=== PATIENT | female | born 1940 | race Caucasian/White ===

== ENCOUNTER → 2018-05-28 10:50 | Outpatient (BNVA) | payer MEDICARE, BC, SELFPAY | PROVIDERS: PCP Internal Medicine Geriatric Medicine; Referring Provider Internal Medicine Geriatric Medicine; Visit Provider Orthopaedic Surgery | DX: M25.511 Pain in right shoulder (principal); M75.81 Other shoulder lesions, right shoulder | CPT/HCPCS: 20610; 99213; 99214; J1040 ==

== ENCOUNTER → 2018-08-21 10:51 | Outpatient (BNVA) | payer MEDICARE, BC, SELFPAY | PROVIDERS: PCP Internal Medicine Geriatric Medicine; Referring Provider Internal Medicine Geriatric Medicine; Visit Provider Orthopaedic Surgery | DX: M17.12 Unilateral primary osteoarthritis, left knee (principal); Z96.651 Presence of right artificial knee joint | CPT/HCPCS: 99213 ==

== ENCOUNTER 2018-10-29 09:57 | Outpatient (CLI) | payer MEDICARE, BC, SELFPAY ==
[2018-10-29 12:43] LABS: Abs Immature Grans 0.03 k/cumm (0.0-0.09); Absolute Basophil Count 0.06 k/cumm (0.0-0.2); Absolute Eosinophil Count 0.24 k/cumm (0.0-0.7); Absolute Lymphocyte Count 3.13 k/cumm (1.2-3.4); Absolute Neutrophil Count 6.66 k/cumm (1.2-6.7); Basophils % 0.5; Eosinophils % 2.2; HGB 13.3 g/dL (12.0-15.5); Immature Grans % 0.3; Lymphocytes % 28.4; Mean Corp. HGB Concentration 34.1 g/dL (32.0-36.0); Mean Corpuscular Hemoglobin 32.2 pg (27.0-33.0); Mean Corpuscular Volume 94.4 fL (80-95); Mean Platelet Volume 9.2 fL (8.0-11.0); Monocytes % 8.2; Neutrophils % 60.4; Platelet Count 327 x1000/uL (130-400); RBC 4.13 m/cumm (4.00-5.20); RBC Distribution Width 12.7 % (11.7-14.6); White Blood Cell Count 11.02 k/cumm (4.4-10.8)
== END 2018-10-29 10:17 ==
PROVIDERS: PCP Internal Medicine; Visit Provider Orthopaedic Surgery
DX: M17.11 Unilateral primary osteoarthritis, right knee (principal); Z01.812 Encounter for preprocedural laboratory examination
CPT/HCPCS: 36415; 85025

== ENCOUNTER 2018-11-03 05:56 | Inpatient (IN) | payer MEDICARE, BC, SELFPAY ==
[2018-10-29 10:06] VITALS: BP 139/72; PULSE 88; RESP 17; TEMP 36.8; O2SAT 97
--- NOTE | 2018-10-29 14:01 | PDOC.CMPRO ---
- If Service Date Differs Date of service: 10/29/18 Time of Service: 14:01 Care Management Progress Note CM visited Eden at her pre op appointment to assess her post op needs. Eden is scheduled for a left total knee replacement by Dr. Drake. Eden lives with her , Francisco, in [place], [place]. 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 She was in a wheel chair during the interview, and states that she has her own wheelchair at home, as well as a walker, which she uses most often. She reports that she lives in a house with everything on the same floor, and that she has a walk in bath. She is not independent at baseline- her is her caregiver. CM asked if there are any concerns about going home. She stated that she has had other surgeries, so she is expecting a recovery time of 3-4 months. She requested to have home health for PT, OT after the surgery, but she also stated that she would be interested in looking into a short rehab stay. CM will provide information on rehab facilities closer to their home. CM will help coordinate and continue to follow.
--- NOTE | 2018-10-29 16:15 | NUR.NOTE ---
During pre op visit patient stated she was unable to receive blood and if she did require blood it would have [place] [facility] [place] Tiana Myers, STARR was made aware of pt's statement during pre op visit. Dr. Drake was made aware of WBC from labs drawn today, 10/29/18, and of the pt's statement about unable to receive blood. No type and screen ordered. [facility] 10/29/18 1643Nursing Note:
[2018-11-03] VITALS (17 sets, daily range): BP systolic 129–190; BP diastolic 58–83; PULSE 73–106; RESP 12–22; TEMP 36.1–36.8; O2SAT 92–98
[2018-11-03] MEDS: Lactated Ringers 1,000 ML 80 ML IV ×2 (07:21→09:39)
[2018-11-03] MEDS: Bupivacaine 0.25% Pres-Free 30 ML VIAL (07:29)
[2018-11-03] MEDS: Bupivacaine LIPOSOME/PF 133 MG/10 ML VIAL IJ (07:29)
[2018-11-03] MEDS: ceFAZolin 2 GM/50 ML BAG IVPB (07:45)
[2018-11-03] MEDS: Hydrogen Peroxide 3% 480 ML BTL (08:58)
--- NOTE | 2018-11-03 11:09 | DI.RAD_ITS ---
SYMPTOM/DIAGNOSIS: CHECK TOTAL KNEE COMPONENTS IN RR LEFT KNEE: 11/03 Two views were obtained and show total knee joint replacement in position. Components appear well seated. No other significant bony abnormality seen.
[2018-11-03] MEDS: oxyCODONE-CR 10 MG TABCR PO (12:34)
[2018-11-03] MEDS: ceFAZolin 2,000 MG in Normal Saline 100 ML 200 MG IVPB ×2 (12:35→17:45)
[2018-11-03] MEDS: POTASSIUM CHLORIDE/0.9% NACL 1,000 ML 125 MEQ IV ×2 (15:04→22:49)
[2018-11-03] MEDS: Ketorolac 30 MG/ML VIAL IVP (15:35)
--- NOTE | 2018-11-03 16:37 | ROE_ITS ---
DATE OF PROCEDURE: November 03, 2018 PREOPERATIVE DIAGNOSIS: Osteoarthritis left knee with valgus deformity. POSTOPERATIVE DIAGNOSIS: Same. PROCEDURE: Left total knee replacement. COMPONENTS USED: 1. Size 2.5 posterior cruciate-substituting femoral component. 2. Size 2.5 tibial component. 3. Rotating platform, posterior cruciate-substituting, 2.5, 12.5 mm polyethylene insert. 4. 32 mm tri-pronged patella. All components were cemented. ANESTHESIA: General with femoral nerve block, Maxi Cabral CRNA SURGEON: Diaz Drake M.D. STATISTICAL REPORTING ANALYST: Raciel Aragon INDICATIONS: This is a 77-year-old white female with progressive left knee pain over the last severa l years. She has previously undergone a right total knee replacement with good result fifteen years ago. Her left knee pain had progressed to the point where it interfered with activities of daily jordyn ing with extreme limitation in her ambulation. X-rays showed a valgus deformity to her knee from the arthritis. Total knee replacement was recommended to alleviate her pain and restore some of her pre vious ambulatory abilities. The risks and complications of the procedure were explained to the patie nt and her in detail preoperatively. PROCEDURE: The patient was taken to the Operating Room on 11/03/18. She was placed supine on the oper ating table and a general anesthetic was administered. A femoral nerve block was then administered t o the left lower extremity. A proximal tourniquet was applied to the left thigh and then the left lo wer extremity was prepped from toes to tourniquet and draped free in the usual sterile fashion. Under proximal tourniquet control, an anterior midline incision was made beginning at the tibial tube rcle and extending four inches proximal to the patella. The incision was carried down to the fascia. A medial parapatellar capsular incision was then made and extended proximally and longitudinally in line with the quadriceps tendon. A limited medial subperiosteal release was performed. The patella was everted and the knee was hyperflexed. The distal femur was resected using intramedullary alignment guides and jigs. She was found to requi re a size 2.5 femoral component. The proximal tibia was then resected using extramedullary alignment guides and jigs. The keel from the tibial component was reamed and punched out in proper rotation a lignment. Trial reduction at this point showed good stability from 0 to 90 degrees of flexion to a v arus/valgus stressing with a 12.5 mm thick insert. The knee also came to full extension with this in sert. The patella was then resected using the patellar resection guide. 16 mm of patella was left for impl antation of the patellar component. Using the drill guide for the tri-pronged patella, the holes for the tri-pronged patella were drilled out in proper rotation alignment. The hole for the intramedullary guide in the femur was filled with resected bone from the distal femu r. The proximal tibia was prepared for cementing. The ACL and PCL were sacrificed. Medial and late ral meniscectomies were performed and the lateral capsule was released from the tibia and the iliotib ial band was released from the tibia as well to compensate for her valgus deformity. The proximal ti siva was prepared with pulse irrigation lavage of saline solution and drying with peroxide-soaked stri p sponges. One batch of gentamicin-impregnated methylmethacrylate was vacuum-mixed and hand-packed o nto the prepared tibia. The tibial component was inserted and packed into place and further pressuri zed using the trial components and extending the knee. Excess cement was trimmed from the margins of the tibial component with the plastic cement removal tool while the cement was still soft. When the first batch of methylmethacrylate had cured the trial components were removed. The distal femur and patella were prepared for cementing with pulse irrigation lavage of saline solution and drying with peroxide-soaked strip sponges. Another batch of gentamicin-impregnated methylmethacrylate was vacuum -mixed and hand-packed onto the prepared distal femur and patella. The femoral component was impacte d into place with the impactor and mallet and pressurized using the trial insert and extending the kn ee. The patellar component was pressurized using the patellar clamp. Excess cement was trimmed from the margins of the femoral and patellar components while the cement was still soft using the plastic cement removal tool. When the second batch of methylmethacrylate had cured, the clamp was removed. The posterior recesses were then checked and any residual bone or cement debris was removed at this point. The actual liner, size 2.5 rotating platform, 12.5 mm thick posterior cruciate-substituting w as placed onto the tibial component and reduced on the femoral condyles. Patellar tracking using the [id number]-xl-af-thumb was anatomic. The left knee was flexed over soft goods and closure was begun. The knee was copiously irrigated with Betadine and saline solution. The solution was allowed to stay in the knee for a minute before suctioning. The knee capsule was then infiltrated with 0.5% Marcaine w ith an epinephrine solution. Then the wound margins were infiltrated with 0.5% Marcaine with an epin ephrine solution. The medial parapatellar capsular incision and the incision in the quadriceps tendo n were repaired with interrupted [id number]-[id number]-[id number] sutures of #1 Vicryl suture material. The subcu was approximated with interrupted #2-0 Vicryl sutures. The skin edges were approximated with skin stapl es. Sterile dressings were applied of Xeroform gauze, sterile gauze 4x4's, ABD pads and wrapped with a Kerlix bandage. A long-leg Wlels compressive dressing was applied. A knee immobilizer splint was placed over the compressive dressing to maintain the knee in extension. The tourniquet was released at this point. The patient receive 1 gram of tranexamic acid prior to tourniquet inflation and a se cond gram of tranexamic acid following tourniquet deflation. The patient's anesthesia was reversed w ithout complication. Blood loss was minimal due to tourniquet use. The patient was discharged to cover in good condition.
--- NOTE | 2018-11-03 17:57 | PT.INIE ---
Date of service: 11/03/18 Time of Service: 03:00 PT Notes Inpatient Physical Therapy Evaluation Date: 11/03/2018 Referring Doctor: Diaz Drake MD PT Orders: PT CONSULT: Get OOB ambulating in room this afternoon. WBAT to L leg post-op L TKR.? Precautions: Fall. Standard. Patient Profile/Admitting Diagnosis: Patient is a 77 year old female s/p L TKR POD 0. She has a history of primary osteoarthritis, and widespread chronic pain. PMHX: Chronic otitis, Chronic pain, aortic stenosis,. basal cell ca,. Hx MRSA,. hyperlipidemia, hypothyroidism,. Iron deficiency anemia,. DARIEN,. PTSD. Suirgical history: Aortic valve replacement. C/S. appendectomy. cholecystectomy. fusion of cervical spine. sinus surgery Social History/Home Situation: Mrs. Muhammad reports she lives with her in a one-story home that has three steps to enter. Patient was independent with all aspects of ADLs without the need for an assistive ambulatory device not adaptive equipment. Equipment Owned/DME: FWW, 4WW, MT Subjective: Mrs. Muhammad reports 9/10 going from her hip to her knee. She informs the SPT and PT she had taken a marijuana-edible to relieve her pain. She agreed to a PT evaluation. Objective: General Observation: Patient was seen laying supine with HOB slightly elevated. She was wearing a marrero dressing and knee immobilizer brace on the L LE. Patient had a willams catheter in place as well as an IV in her R LE. She has an obvious essential tremor. Mental Status: Alert and oriented x 4 Pain: 9/10 Vital Signs: ROM: Right Lower Extremity: Hip flexion WFL. Hip abduction WFL. Ankle dorsiflexion WFL. Ankle plantarflexion WFL. Left Lower Extremity: Hip flexion WFL. Hip abduction WFL. Knee flexion NT due to complaints of pain. Knee extension NT due to complaints of pain. Ankle dorsiflexion WFL. Ankle plantarflexion WFL. Strength: Right Lower Extremity: Hip flexors 3-/5. Hip abductors 4/5. Knee extensors 4-/5. Ankle dorsiflexors 3/5. Ankle plantarflexors 3/5. Left Lower Extremity: Hip flexors 3-/5. Hip abductors 4/5. Knee extensors 3-/5. Ankle dorsiflexors 3/5. Ankle plantarflexors 3/5. Bed Mobility/Transfers: Rolling Min Supine to sit Min A Sit to supine Min A Sit to stand Mod A Stand to sit Mod A Bed to chair Mod A Chair to bed Mod A Gait: Patient ambulated 15? + 15? using a step-to gait pattern with a FWW and minimal-moderate assist of two people and with moderate to maximal verbal cues for safe gait pattern, hand placement, and walker management. She took three lateral steps to the left to center herself before getting back into bed. Balance: Static Sitting: Good Dynamic Sitting: Good Static Standing: Poor Dynamic Standing: Poor Special Tests: Mobility Limitations Standardized Measure [facility] AM-PAC 6 clicks Basic Mobility Inpatient Short Form: Raw Score: 13 CMS Score: 65% Informed Consent/Education: Patient instructed in purpose of PT consult and plan of care. Assessment: Patient is a 77 year old female s/p L TKA POD 0. She has a history of hypertension, primary osteoarthritis, and chronic pain. She has the support of her , and seems motivated to return to prior level of function so her prognosis is good. Patient presents with clinical signs and symptoms consistent with current/admitting diagnoses that have resulted to mobility limitations, gait instability, generalized weakness, and impairment of motor control as demonstrated by the following impairment level findings: 1. Decreased strength to B LE major muscle groups 2. Impaired sitting/standing balance 3. Impaired activity tolerance 4. Limitation of joint range of motion in knee flexion and extension Impairments are contributing to the following functional limitations: 1. Dependent bed mobility skills 2. Increased dependence with transfers 3. Inability to safely ambulate without assistive device and physical assistance 4. Increase completion time for mobility ADL performance 5. Increased fall risk 6. Inability to negotiate steps alone safely Patient is assessed as a 14183 moderate complexity based on the following: History: Hypertension, chronic pain, osteoarthritis, essential tremor Examination: Demonstrable impairment in strength, balance, and range of motion with underlying impairments and functional limitations as documented above Presentation: Evolving Decision Makin moderate complexity Goals: Goals X1 week 1. Supine-Sit independent 2. Sit-Supine independent 3. Sit-Stand independent 4. Stand-Sit independent 5. Bed-Chair independent 6. Chair-Bed independent 7. Independent gait on level surface with use of least restrictive device for at least 100 feet without report of pain nor dyspnea 8. Independent stair negotiation while holding onto bilateral rails for at least 5 steps without report of pain nor dyspnea 9. Independent with home exercise program 10. Good static and dynamic standing balance/tolerance Plan of Care/Treatment Plan: 1-2x/day, 7 days/week x 1 week. Plan of care has been reviewed with the SALMON TROLL FISHER providing the service under Physical Therapy direction. Initiate Physical Therapy intervention for strengthening, bed mobility, transfers, gait, stairs, balance training, use of assistive device. DISCHARGE RECOMMENDATIONS: Patient has requested being discharged to a group home facility as she fears her will not have the capacity to care for her. PT and SPT agree that SNF would be the best fit for her recovery. TREATMENT CODE/TIME: 10038 x 48 minutes beginning at 15:00 PM. Thank you very much for this referral. Leonel Acuna [facility] With the supervision of: Ruthie Carroll PT, DPT, CLT [facility]
[2018-11-03] MEDS: oxyCODONE 5 mg/Acetaminophen 325 mg TAB 1 TAB PO (20:04)
[2018-11-03] MEDS: Primidone 50 MG TAB PO (20:05)
[2018-11-03] MEDS: Acetaminophen 325 MG TAB 650 MG PO (21:31)
[2018-11-03] MEDS: Patch Removal 1 EACH TP (21:33)
[2018-11-03] MEDS: DULoxetine 30 MG CAP 60 MG PO (21:50)
[2018-11-03] MEDS: Montelukast 10 MG TAB PO (21:51)
[2018-11-04] VITALS (7 sets, daily range): BP systolic 135–164; BP diastolic 53–76; PULSE 88–121; RESP 16–22; TEMP 36.3–37.4; O2SAT 92–96
[2018-11-04] MEDS: oxyCODONE-CR 10 MG TABCR PO ×3 (00:10→23:27)
[2018-11-04] MEDS: ceFAZolin 2,000 MG in Normal Saline 100 ML 200 MG IVPB ×2 (00:10→06:02)
[2018-11-04] MEDS: Normal Saline Flush 10 ML SYR IVP ×5 (05:29→22:49)
[2018-11-04] MEDS: oxyCODONE 5 mg/Acetaminophen 325 mg TAB 1 TAB PO ×4 (06:01→22:40)
[2018-11-04] MEDS: Ondansetron 4 MG TAB 8 MG PO (06:09)
[2018-11-04] MEDS: POTASSIUM CHLORIDE/0.9% NACL 1,000 ML 125 MEQ IV (06:57)
[2018-11-04 07:33] LABS: HCT 27.1 % (36.0-46.0); HGB 8.9 g/dL (12.0-15.5); Mean Corp. HGB Concentration 32.8 g/dL (32.0-36.0); Mean Corpuscular Hemoglobin 31.6 pg (27.0-33.0); Mean Corpuscular Volume 96.1 fL (80-95); Mean Platelet Volume 9.9 fL (8.0-11.0); Platelet Count 239 x1000/uL (130-400); RBC 2.82 m/cumm (4.00-5.20); RBC Distribution Width 12.5 % (11.7-14.6); White Blood Cell Count 12.92 k/cumm (4.4-10.8)
[2018-11-04] MEDS: Baclofen 10 MG TAB PO (07:48)
[2018-11-04] MEDS: DULoxetine 30 MG CAP PO (08:22)
[2018-11-04] MEDS: Ascorbic Acid 500 MG TAB 1000 MG PO (08:22)
[2018-11-04] MEDS: hydroCHLOROthiazide 25 MG TAB PO (08:22)
[2018-11-04] MEDS: Cholecalciferol (Vitamin D3) 400 UNIT TAB PO (08:22)
[2018-11-04] MEDS: Primidone 50 MG TAB PO ×2 (08:22→19:24)
[2018-11-04] MEDS: amLODIPine 10 MG TAB PO (08:23)
[2018-11-04] MEDS: Multivitamin w/Minerals TAB 1 TAB PO (08:23)
[2018-11-04] MEDS: Levothyroxine 25 MCG TAB PO (08:23)
[2018-11-04] MEDS: diphenhydrAMINE 25 MG CAP PO (08:23)
[2018-11-04] MEDS: Pantoprazole 40 MG TABCR PO (08:24)
[2018-11-04] MEDS: Vitamin E 400 UNITS CAP PO (08:24)
[2018-11-04] MEDS: Ketorolac 30 MG/ML VIAL IVP ×2 (09:06→15:48)
[2018-11-04] MEDS: Enoxaparin 40 MG/0.4 ML SYR SC (09:07)
--- NOTE | 2018-11-04 09:18 | PDOC.CMIN ---
- If Service Date Differs Date of service: 11/04/18 Time of Service: 09:18 Care Management Initial Assess REASON FOR HOSPITALIZATION:: Osteoarthritis of left knee PAST MEDICAL HISTORY/PAST SURGICAL HISTORY:: Chronic otitis, Chronic pain, aortic stenosis,. basal cell ca,. Hx MRSA,. hyperlipidemia, hypothyroidism,. Iron deficiency anemia,. DARIEN,. PTSD. Suirgical history: Aortic valve replacement. C/S. appendectomy. cholecystectomy. fusion of cervical spine. sinus surgery PREVIOUS FUNCTIONAL STATUS/SOCIAL/FAMILY SUPPORTS:: Johanna lives with her in [place], [place] in a single family home which is all on one level. She uses a wheelchair, walker and cane at different times for ambulatory assistance. Eden has a son who will stay with her for a few days when she returns home to provide additional support. Eden states her cooks and is very helpful with her care. CURRENT FUNCTIONAL STATUS:: Johanna was sitting up slightly in bed with an ice pack on her head when CM came to meet with her. She stated she had a terrible migraine headache which she gets several times per week.She stated that the surgery went well but because of the headache she was unable to work with PT today. She anticipates needing HH services at home. She shared that her balance is poor and that she is not sure how well she will be able to get around. She is open to the ides of a short rehab stay but would prefer to go home if possible. ADVANCE DIRECTIVES:: None on file Has patient been provided with information about the portal?: No Did the patient sign up for the portal?: No CODE STATUS:: Full Code INSURANCE COVERAGE / FINANCIAL ISSUES:: Medicare. BS CURRENT HOME/COMMUNITY SERVICES/EQUIPMENT:: wheelchair, walker, cane PRIMARY CARE PHYSICIAN:: Megan Gonzalez POTENTIAL DISCHARGE NEEDS:: Follow up with Surgeon and discharge plan of care PATIENT/FAMILY EDUCATION NEEDS:: Discharge plan, limitations, follow up plan, Ask Me Three ANTICIPATED BARRIERS TO DISCHARGE:: chronic pain TRANSPORTATION:: via private vehicle with when ready PLAN:: Eden is recovering from knee surgery and will be working with PT. She may need a short stay in rehab prior to going home. In either case she will likely need new HH services of RN, OT and PT at home. CM will continue to provide support to patient, family and discharge planning needs.
--- NOTE | 2018-11-04 09:51 | PHARADMIT ---
Addendum entered by Andrés Prince III 11/07/18 10:44: Pharmacy Note Subjective MD notes that patient is slow to progress and will need a SNF rehab stay upon discharge. Objective VS-OK Pain: 10/04 No Labs, Assessment Oxycodone reordered for 4 more days. Cefazolin has completed. Plan Care managers working on placement, continue PT and curent care. Original Note: Admission Pharmacy Clinical Review LEFT KNEE (Dr. Drake) 11/03/18 Code Status Full Code Current Weight 87.9 kg Renally Cleared and Narrow Therapeutic Index Meds No SCr available, no prior visits QTc Value / Action Taken BP Control, Fever BP 136/53 Temp Afebrile Pain 10/04 Electrolytes reviewed n/a DVT Prophylaxis Lovenox 40mg Opiate Usage / Scheduled Bowel Regimen Ordered yes/yes Plt/SCr for Heparin / Enoxaparin Plt 239 SCr n/a INR for Warfarin H/H stable, WBC/Bands H/H 8.9/27.1 WBC 12.92 Antibiotic appropriateness Cultures and Sensitivities Surgical ABX d/c within 24 hr DM control / Insulin Dosing Heart Failure (Check EF%) (ARLETTE's, B-Block, Diuretics) Amlodipine, HCTZ, IV to PO Switch Home Meds Reviewed Non-formulary meds needing clarification: Dexameth eye drops and Liothyronine, waiting for family to come in to ask, RN aware,retail pharmacy listed in [facility]ick has not filled these Rx's ?Diphenhydramine administered in the morning??? will ask, also taking schedule Oxycontin and Percocet prn Home Meds Not Ordered Comments Pain: Toradol IV scheduled, Lidocaine patch
[2018-11-04] MEDS: diazePAM 2 MG TAB PO (11:17)
--- NOTE | 2018-11-04 11:36 | PT.INTREAT ---
Date of service: 11/04/18 Time of Service: 11:36 PT Notes Inpatient Physical Therapy Treatment Note [facility] Date: 11/04/18 PRECAUTIONS: Fall SUBJECTIVE: Johanna reporting that she has a significant migraine this morning. She initially refuses to participate in PT. For the second attempt, patient reports no relief from her migraine and continues to refuse to participate in PT. OBJECTIVE: I educate patient regarding the importance of participating in early rehab for best possible outcomes following her TKA. We discuss the potential issues that may arise following lack of participation in PT. Nursing is aware. BED MOBILITY/TRANSFERS/GAIT: Refused THEREX: Patient completed ankle pumps and quad sets x10 each. Patient then refused to perform further exercises until she feels relief from her migraine. ASSESSMENT: Patient would benefit from participating in early rehabilitation following her TKA for improved mobility. PLAN: Continue with PT's POC TREATMENT CODE/TIME: 10 minutes; 13005
[2018-11-04] MEDS: Acetaminophen 325 MG TAB 650 MG PO ×2 (11:42→19:24)
[2018-11-04] MEDS: fentaNYL 100 MCG/2 ML VIAL 50 MCG IVP ×4 (13:09→22:45)
[2018-11-04] MEDS: Cyproheptadine 4 MG TAB PO (14:52)
--- NOTE | 2018-11-04 15:04 | W.PM.PROGNOT ---
Date of Service Date of service: 11/04/18 Time of Service: 15:04 Assessment and Plan (1) Status post total knee replacement: Current visit: Yes Status: Acute Assessment: Stable postop day #1 left total knee replacement. I think she is demonstrating some mild confusion today. That this is demonstrated by the fact that she has a multitude of complaints that she contradicts is a speak with her longer. She stopped talking about her migraines after I point out to her that her PCP did not mention migraines in her H&P. She does not list any medications that she would be taking for migraine. I also pointed out to her that the reason she is having less pain with her knee replacement this hospitalization is that she is having multimodal pain control with scheduled medication dosages rather than as needed doses so the medicines that she denies are helping are actually helping. Plan: DC her [place]. Recheck hemoglobin tomorrow. I am not going to give her anything different or any new medications for her headache. She already has fentanyl ordered for severe pain. We will continue to mobilize her per protocol PT. Will take off her [place] tomorrow and get her knee flexing. Subjective Interval history since last seen: She is complaining that she is having a migraine headache. I reviewed her preop H&P by her PCP. There is no mention in this note about migraines. She is certainly not taking any medicine for migraines. She says that in the past the only thing that made him go away was a shot of Demerol. As for her knee, she tells me that she is having much less pain with his knee replacement than she did with her right knee 15 years ago. She is concerned about her bowel status at this time. She is worried about getting constipated even though in the past she has had a problem with fecal incontinence. She is concerned about getting her [place] out even though she walked to the doorway and back. Exam Narrative Exam Narrative: She has good sensation and circulation to her left toes. She has good active ankle dorsiflexion and plantarflexion. She was able to walk with her walker from the bed to the doorway and back. I&o's are good. Hemoglobin is 8.9 g this morning. Objective Objective Clinical Data: Abnormal lab results 11/04/18 Range/Units 06:06 WBC 12.92 H (4.4-10.8) k/cumm RBC 2.82 L (4.00-5.20) m/cumm Hgb 8.9 L (12.0-15.5) g/dL Hct 27.1 L (36.0-46.0) % MCV 96.1 H (80-95) fL Vital Signs Temperature 36.8 C 11/04/18 13:03 Temperature Source Tympanic 11/04/18 13:03 Pulse 99 H 11/04/18 13:03 Pulse Rhythm Regular 11/04/18 09:22 Respiratory Rate 11/04/18 13:03 Respiratory Effort 11/04/18 09:22 Respiratory Depth Normal 11/04/18 09:22 Respiratory Pattern Normal 11/04/18 09:22 Blood Pressure 154/67 H 11/04/18 13:03 Pulse Oximetry 93 L 11/04/18 13:03 Respiratory End-tidal CO2 33 11/03/18 11:50 Oxygen Delivery Method Room Air 11/04/18 13:03 Oxygen Flow Rate 0 11/04/18 13:03 Pain Level 9 11/04/18 13:09 Intake & Output 11/03/18 11/04/18 11/04/18 23:59 11:59 23:59 Intake Total 1551.417 / 2971.417 1802.5 / 1802.5 Output Total 100 / 200 1050 / 1450 400 / 1450 Balance 1451.417 / 2771.417 752.5 / 352.5 -400 / 352.5 Weight 87.9 kg Intake: IV 1551.417 / 2921.417 1322.5 / 1322.5 Oral 480 / 480 Output: Urine 100 / 200 1050 / 1450 400 / 1450 Other: Urine Color Straw Yellow Yellow Light Dalia Urine Appearance Clear Clear Clear Laboratory Results WBC 12.92 k/cumm (4.4-10.8) H 11/04/18 06:06 RBC 2.82 m/cumm (4.00-5.20) L 11/04/18 06:06 Hgb 8.9 g/dL (12.0-15.5) L 11/04/18 06:06 Hct 27.1 % (36.0-46.0) L 11/04/18 06:06 MCV 96.1 fL (80-95) H 11/04/18 06:06 MCH 31.6 pg (27.0-33.0) 11/04/18 06:06 MCHC 32.8 g/dL (32.0-36.0) 11/04/18 06:06 RDW 12.5 % (11.7-14.6) 11/04/18 06:06 Plt Count 239 x1000/uL (130-400) 11/04/18 06:06 MPV 9.9 fL (8.0-11.0) 11/04/18 06:06
--- NOTE | 2018-11-04 15:20 | CHAPLAIN ---
Johanna was lying in bed with a washcloth and icepack over her eyes and forehead. She told me she was dealing with a migraine. Johanna is a member of the [facility] [facility] [employer] and her hot car charger knows she is here. While we were having a conversation, she received a phone call and I left.
--- NOTE | 2018-11-04 15:39 | PT.INTREAT ---
Date of service: 11/04/18 Time of Service: 15:39 PT Notes Inpatient Physical Therapy Treatment Note [facility] Date: 11/04/2018 PRECAUTIONS: Fall, WBAT L SUBJECTIVE: Johanna states that she is feeling a little better and is agreeable to participating in PT following some encouragement. OBJECTIVE: PAIN: No complaints of knee pain BED MOBILITY/TRANSFERS Rolling L/R: I Supine-sit: SBA Sit-supine: SBA Sit-stand: CGA from elevated bed surface, mod a from chair surface Stand-sit: CGA GAIT Assistive Device: FWW Weight bearing: WBAT L Assist: CGA?Min A Distance: 10' +5' Deviation: Seated rest x1, shakiness, verbal and tactile cueing required for FWW mechanics THEREX: Patient completed a lower extremity strengthening and stabilization program, with knee immobilizer in place, in a supine position, as per flow sheet. ASSESSMENT: Patient tolerated session without complaints of left knee pain. She was able to tolerate gait training this afternoon, requiring seated rest x1, demonstrating shakiness and requiring verbal and tactile cueing for FWW mechanics for safety. Patient would benefit from continued gait and transfer training as well as lower extremity strengthening for improved mobility and improved activity tolerance. PLAN: Continue with PTs POC TREATMENT CODE/TIME: 30 minutes; [id number], [id number]
[2018-11-04] MEDS: Montelukast 10 MG TAB PO (22:15)
[2018-11-04] MEDS: DULoxetine 30 MG CAP 60 MG PO (22:15)
[2018-11-05] VITALS (8 sets, daily range): BP systolic 154–173; BP diastolic 51–76; PULSE 90–112; RESP 16–24; TEMP 36.3–38; O2SAT 92–96
--- NOTE | 2018-11-05 01:07 | NUR.NOTE ---
Nursing Note: Around 2229, this nurse went in the patients room to give her the scheduled meds due including ketoralac. Patient became very upset and started yelling stating I am not taking that medication! It does not work! I only want fetanyl! This nurse spoke with CCRN and advised the patient to try the ketoralac first, then if there was not any relief she would get the fetanyl. Patient was frequently yelling out becoming belligerent with the nurses and INSURANCE SALES PRODUCER's. Patient being uncooperative, instead of ringing her call light, patient would begin yelling out and trying to get out of bed without assistance, then would scream that she was in pain. When patient would attempt to get up with assistance she would try to sit without being at the bed or bedside commode and ultimately it was decided to use a stedy lift for the night for patient safety when patient is out of bed. Patient was also stating it is ridiculous that her catheter was taken out because she is not strong enough to go to the commode. This nurse advised the patient that getting out of bed to go to the bathroom was good and would help build up strength when she does it.
[2018-11-05] MEDS: fentaNYL 100 MCG/2 ML VIAL 50 MCG IVP ×2 (01:41→05:08)
[2018-11-05] MEDS: Normal Saline Flush 10 ML SYR IVP ×3 (01:42→08:32)
[2018-11-05] MEDS: oxyCODONE 5 mg/Acetaminophen 325 mg TAB 1 TAB PO ×2 (02:23→07:35)
[2018-11-05 07:30] LABS: HCT 26.7 % (36.0-46.0); HGB 8.8 g/dL (12.0-15.5); Mean Corpuscular Volume 97.1 fL (80-95); Mean Platelet Volume 9.8 fL (8.0-11.0); Platelet Count 249 x1000/uL (130-400); RBC 2.75 m/cumm (4.00-5.20); RBC Distribution Width 12.8 % (11.7-14.6); White Blood Cell Count 12.51 k/cumm (4.4-10.8)
[2018-11-05] MEDS: amLODIPine 10 MG TAB PO (07:35)
[2018-11-05] MEDS: Primidone 50 MG TAB PO ×2 (07:36→20:08)
[2018-11-05] MEDS: Cholecalciferol (Vitamin D3) 400 UNIT TAB PO (07:36)
[2018-11-05] MEDS: Vitamin E 400 UNITS CAP PO (07:36)
[2018-11-05] MEDS: DULoxetine 30 MG CAP PO (07:36)
[2018-11-05] MEDS: Acetaminophen 325 MG TAB 650 MG PO ×2 (07:36→22:46)
[2018-11-05] MEDS: Ascorbic Acid 500 MG TAB 1000 MG PO (07:37)
[2018-11-05] MEDS: Levothyroxine 25 MCG TAB PO (07:37)
[2018-11-05] MEDS: hydroCHLOROthiazide 25 MG TAB PO (07:37)
[2018-11-05] MEDS: Pantoprazole 40 MG TABCR PO (07:37)
[2018-11-05] MEDS: Magnesium Oxide 400 MG TAB PO (07:37)
[2018-11-05] MEDS: diphenhydrAMINE 25 MG CAP PO (07:37)
[2018-11-05] MEDS: Multivitamin w/Minerals TAB 1 TAB PO (07:37)
--- NOTE | 2018-11-05 09:18 | PDOC.CMPRO ---
- If Service Date Differs Date of service: 11/05/18 Time of Service: 09:18 Care Management Progress Note S/O:Eden was sitting up in bed surrounded by family when CM came to see her. She states she is not feeling very good as she is having lots of pain. Eden and her family are requesting that CM send referrals to area SNFs for rehab. CM sent referrals to [facility] in [place], [facility], also in [place] and [facility]. A: Eden is a 77 year old woman admitted to [facility] on 11/03/18 for a total knee replacement P:Eden will work with PT to increase ambulation and mobility. She will likely go to [facility] upon discharge. Since Eden lives in [place], she is requesting placement closer to home. CM will continue to support patient, family and discharge planning process.
[2018-11-05] MEDS: Enoxaparin 40 MG/0.4 ML SYR SC (10:23)
[2018-11-05] MEDS: oxyCODONE 5 mg/Acetaminophen 325 mg TAB PO ×2 (10:57→20:30)
[2018-11-05] MEDS: LORazepam 0.5 MG TAB PO ×2 (12:20→20:08)
[2018-11-05] MEDS: oxyCODONE-CR 10 MG TABCR PO (12:21)
--- NOTE | 2018-11-05 13:08 | PT.INTREAT ---
Date of service: 11/05/18 Time of Service: 10:17 PT Notes Inpatient Physical Therapy Treatment Note [facility] Date: 11/05/2018 PRECAUTIONS: Fall. Standard. WBAT on L LE. SUBJECTIVE: Patient is adamantly refusing any out-of-bed activities for this session. She states that she has 9-10/10 pain on her knee at rest that can get aggravated with any movement. She is agreeable to removal of her Wells dressing from her right knee. OBJECTIVE: PAIN: Patient complained of constant significant left knee pain BED MOBILITY/TRANSFERS Supine-sit: minimal assist to L LE Sit-supine: minimal assist to L LE Sit-stand: minimal ssist of PT and student PT Stand-sit: minimal assist Bed-Chair:minimal assist Chair-bed:minimal assist GAIT Assistive Device: FWW Weight bearing: WBAT L Assist: minimal assit Distance: 3 sidesteps to bedside commode, 1 back step with R LE leading; 3 sidesteps to bedside commode, 1 back step with L LE leading Deviation: Highly anxious, increased shakiness with movement more promounced in B UE ASSESSMENT: Treatment for today consisted of removal of Wells dressing per orthopod instruction, review of patient goals, and reinforcement of the benefits of continuing to actively participate during physical therapy sessions. Patient continues to present with high anxiety about doing any movement as she states any movement results to significant pain. Patient continues to require extensive motivation and encouragement to participate in therapy sessions. PLAN: Continue with PT POC. Patient will benefit from home health PT services in order to progress mobility level using least restrictive assistive ambulatory device, assess home safety, identify additional equipment needs, and establish a functional maintenance program that will increase ability of patient to remain at home. TREATMENT CODE/TIME:
--- NOTE | 2018-11-05 15:02 | PT.INTREAT ---
Date of service: 11/05/18 Time of Service: 15:02 PT Notes Inpatient Physical Therapy Treatment Note [facility] Date: 11/05/2018 PRECAUTIONS: Fall SUBJECTIVE: Johanna is hesitant to participate in PT, stating that she does not want to get out of bed because she feels like she is going to faint. Johanna continues to complain of constant left knee pain. Following significant encouragement, patient is agreeable to participating in PT. OBJECTIVE: PAIN: Patient complained of constant significant left knee pain BED MOBILITY/TRANSFERS Supine-sit: Min A Sit-supine: SBA Sit-stand: Mod A Stand-sit: Min A Bed-Chair: Mod A Chair-bed: Mod A GAIT Assistive Device: FWW Weight bearing: WBAT L Assist: Mod A Distance: 6' x2 Deviation: Seated rest, shakiness, verbal and tactile cueing for FWW mechanics for safety THEREX: Patient completed a lower extremity strengthening and stabilization program, in a supine position, as per flow sheet. Patient requires assist for SLR and heel slide exercises at this time. Cryocuff to left knee. TOILETING: Patient toileted, using commode, with Max A ASSESSMENT: Patient tolerated session with complaints of constant significant left knee pain throughout session. Patient would benefit from continued participation in transfer and gait training, as well as strengthening for improved mobility and improved activity tolerance. PLAN: Continue with PTs POC TREATMENT CODE/TIME: 30 minutes; [id number], [id number]
--- NOTE | 2018-11-05 15:19 | NUR.NOTE ---
Nursing Note: Patient reports 10/10 pain consistently throughout the day as well as after pain medication administration. Patient appears drowsy and arouses easily. Patient expressed gratitude this am when she appeared to believe she was given IV fentanyl. Patient did not receive this medication, but reported she felt better when she thought to have had it.
--- NOTE | 2018-11-05 16:21 | W.PM.PROGNOT ---
Date of Service Date of service: 11/05/18 Time of Service: 16:21 Assessment and Plan (1) Status post total knee replacement: Current visit: Yes Status: Acute Assessment: Slow progress s/p L tkr due to low pain tolerance. Plan: Try fentanyl TD patch. Talked to discharge planning about long term facility transfer by Saturday for additional rehab before she can safely go home. Continue present Rx. Subjective Patient reports: still having pain and tolerating a regular diet Interval history since last seen: Feels like she needs stronger pain meds now that IV is out. Exam Narrative Exam Narrative: Afebrile ,VSS. NV exam L foot normal. PT didn't record ROM. Was OOB ambulating 6'x2 Bladder scan showed 0 cc. Objective Objective Clinical Data: Abnormal lab results 11/05/18 Range/Units 06:40 WBC 12.51 H (4.4-10.8) k/cumm RBC 2.75 L (4.00-5.20) m/cumm Hgb 8.8 L (12.0-15.5) g/dL Hct 26.7 L (36.0-46.0) % MCV 97.1 H (80-95) fL Vital Signs Temperature 37.1 C 11/05/18 16:01 Temperature Source Tympanic 11/05/18 16:01 Pulse 94 H 11/05/18 16:01 Pulse Rhythm Regular 11/05/18 09:00 Respiratory Rate 18 11/05/18 16:01 Respiratory Effort Non-Labored 11/05/18 09:00 Respiratory Depth Normal 11/05/18 09:00 Respiratory Pattern Normal 11/05/18 09:00 Blood Pressure 156/76 H 11/05/18 16:01 Pulse Oximetry 92 L 11/05/18 16:01 Respiratory End-tidal CO2 33 11/03/18 11:50 Oxygen Delivery Method Room Air 11/05/18 16:01 Oxygen Flow Rate 0 11/05/18 16:01 Pain Level 0 11/05/18 16:01 Comment 11/05/18 16:01 Intake & Output 11/04/18 11/05/18 11/05/18 23:59 11:59 23:59 Intake Total 866 / 2668.5 715 / 715 Output Total 950 / 2000 300 / 300 Balance -84 / 668.5 415 / 415 Intake: IV 616 / 1938.5 Oral 250 / 730 700 / 700 Output: Urine 950 / 2000 300 / 300 Other: Urine Color Yellow Dark Dalia Urine Appearance Clear Clear Urine Odor Normal None Voiding Methods Incontinent Bedside Commode Laboratory Results WBC 12.51 k/cumm (4.4-10.8) H 11/05/18 06:40 RBC 2.75 m/cumm (4.00-5.20) L 11/05/18 06:40 Hgb 8.8 g/dL (12.0-15.5) L 11/05/18 06:40 Hct 26.7 % (36.0-46.0) L 11/05/18 06:40 MCV 97.1 fL (80-95) H 11/05/18 06:40 MCH 32.0 pg (27.0-33.0) 11/05/18 06:40 MCHC 33.0 g/dL (32.0-36.0) 11/05/18 06:40 RDW 12.8 % (11.7-14.6) 11/05/18 06:40 Plt Count 249 x1000/uL (130-400) 11/05/18 06:40 MPV 9.8 fL (8.0-11.0) 11/05/18 06:40
[2018-11-05] MEDS: fentaNYL 25 MCG PATCH TD (17:21)
[2018-11-05] MEDS: Prochlorperazine 10 MG TAB PO (18:24)
[2018-11-05] MEDS: Celecoxib 200 MG CAP PO (20:08)
[2018-11-05] MEDS: Patch Removal 1 EACH TP (20:27)
[2018-11-05] MEDS: Patient's Own Medication 1 EACH MISC PO (20:32)
[2018-11-05] MEDS: DULoxetine 30 MG CAP 60 MG PO (22:26)
[2018-11-05] MEDS: Montelukast 10 MG TAB PO (22:26)
[2018-11-06] MEDS: oxyCODONE-CR 10 MG TABCR PO ×3 (00:32→23:28)
[2018-11-06 03:22] VITALS: BP 148/67; PULSE 87; RESP 18; TEMP 36.6; O2SAT 94
[2018-11-06 07:10] VITALS: BP 117/68; PULSE 82; RESP 20; TEMP 36.2; O2SAT 95
[2018-11-06] MEDS: Patient's Own Medication 1 EACH MISC PO ×2 (08:21→19:51)
[2018-11-06] MEDS: oxyCODONE 5 mg/Acetaminophen 325 mg TAB PO (08:22)
[2018-11-06] MEDS: Multivitamin w/Minerals TAB 1 TAB PO (08:23)
[2018-11-06] MEDS: Cholecalciferol (Vitamin D3) 400 UNIT TAB PO (08:23)
[2018-11-06] MEDS: diphenhydrAMINE 25 MG CAP PO ×2 (08:23→21:50)
[2018-11-06] MEDS: Levothyroxine 25 MCG TAB PO (08:23)
[2018-11-06] MEDS: hydroCHLOROthiazide 25 MG TAB PO (08:23)
[2018-11-06] MEDS: Magnesium Oxide 400 MG TAB PO (08:23)
[2018-11-06] MEDS: Vitamin E 400 UNITS CAP PO (08:24)
[2018-11-06] MEDS: Celecoxib 200 MG CAP PO ×2 (08:24→19:51)
[2018-11-06] MEDS: DULoxetine 30 MG CAP PO (08:24)
[2018-11-06] MEDS: LORazepam 0.5 MG TAB PO ×3 (08:24→19:50)
[2018-11-06] MEDS: amLODIPine 10 MG TAB PO (08:24)
[2018-11-06] MEDS: Ascorbic Acid 500 MG TAB 1000 MG PO (08:24)
[2018-11-06] MEDS: Primidone 50 MG TAB PO ×2 (08:24→19:50)
[2018-11-06] MEDS: Pantoprazole 40 MG TABCR PO (08:25)
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
[2018-11-06] MEDS: Enoxaparin 40 MG/0.4 ML SYR SC (09:46)
[2018-11-06] MEDS: Sennosides/Docusate Sodium TAB 2 TAB PO ×2 (09:46→18:22)
[2018-11-06 11:05] VITALS: BP 116/62; PULSE 89; RESP 20; TEMP 36.5; O2SAT 94
--- NOTE | 2018-11-06 14:51 | W.PM.PROGNOT ---
Date of Service Date of service: 11/06/18 Time of Service: 14:51 Assessment and Plan Assessment and plan (1) Status post total knee replacement: Status: Acute Assessment and plan: Assessment: Slow progress following total knee replacement. She is going to need assisted before she can return home safely. Care management is working on placement. The fentanyl patch really helped with her pain management. Plan: Continue mobilize with physical therapy. shelter home placement as soon as bed becomes available. Subjective Subjective Patient reports: feels better and pain is less Interval history since last seen: Complains of sore throat. Exam Narrative Exam Narrative: Incision incision is clean and dry. She was able to walk with physical therapy today. Quad control is still poor. His throat is benign and noninjected. Objective Objective Clinical Data: Vital Signs Temperature 36.5 C 11/06/18 11:05 Temperature Source Tympanic 11/06/18 11:05 Pulse 89 11/06/18 11:05 Pulse Rhythm Regular 11/06/18 08:45 Respiratory Rate 20 11/06/18 11:05 Respiratory Effort Non-Labored 11/06/18 08:45 Respiratory Depth Normal 11/06/18 08:45 Respiratory Pattern Normal 11/06/18 08:45 Blood Pressure 116/62 11/06/18 11:05 Pulse Oximetry 94 L 11/06/18 11:05 Respiratory End-tidal CO2 33 11/03/18 11:50 Oxygen Delivery Method Room Air 11/06/18 11:05 Oxygen Flow Rate 0 11/06/18 11:05 Pain Level 8 11/06/18 12:18 Comment 11/05/18 16:01 Intake & Output 11/05/18 11/06/18 11/06/18 23:59 11:59 23:59 Intake Total 480 / 1195 250 / 370 120 / 370 Output Total 950 / 1250 Balance -470 / -55 250 / 370 120 / 370 Intake: Oral 480 / 1180 250 / 370 120 / 370 Output: Urine 950 / 1250 Other: Urine Color Yellow Urine Appearance Clear Urine Odor None Voiding Methods Bedside Commode Diaper Incontinent Laboratory Results WBC 12.51 k/cumm (4.4-10.8) H 11/05/18 06:40 RBC 2.75 m/cumm (4.00-5.20) L 11/05/18 06:40 Hgb 8.8 g/dL (12.0-15.5) L 11/05/18 06:40 Hct 26.7 % (36.0-46.0) L 11/05/18 06:40 MCV 97.1 fL (80-95) H 11/05/18 06:40 MCH 32.0 pg (27.0-33.0) 11/05/18 06:40 MCHC 33.0 g/dL (32.0-36.0) 11/05/18 06:40 RDW 12.8 % (11.7-14.6) 11/05/18 06:40 Plt Count 249 x1000/uL (130-400) 11/05/18 06:40 MPV 9.8 fL (8.0-11.0) 11/05/18 06:40
[2018-11-06] MEDS: Acetaminophen 325 MG TAB 650 MG PO ×2 (15:50→23:27)
[2018-11-06 16:05] VITALS: BP 123/54; PULSE 93; RESP 18; TEMP 36.6; O2SAT 96
--- NOTE | 2018-11-06 19:33 | PTTR_ITS ---
Date of service: 11/06/18 Time of Service: 19:33 PT Notes Inpatient Physical Therapy Treatment Note [facility] Date: 11/06/2018 PRECAUTIONS: Fall SUBJECTIVE: Johanna continues to be hesitant about participating in PT, stating that she does not want to get out of bed because she has a sore throat and is extremely exhausted. Johanna continues to complain of left knee pain. Following significant encouragement, patient is agreeable to participating in PT in both a.m. and p.m. OBJECTIVE: PAIN: Patient complained of constant significant left knee pain BED MOBILITY/TRANSFERS Supine-sit: Min A in a.m.; SBA in p.m. Sit-supine: Mod A in a.m.; CGA in p.m. Sit-stand: CGA Stand-sit: Min A Bed-Chair: Min A Chair-bed: Min A GAIT Assistive Device: FWW Weight bearing: WBAT L Assist: Min A Distance: 6' x2 in a.m.; 6' + 10' + 4' in p.m. Deviation: Seated rest, decreased shakiness, verbal and tactile cueing for FWW mechanics for safety THEREX: Patient completed a lower extremity strengthening and stabilization program, in a supine position, as per flow sheet. Patient requires assist for SLR and heel slide exercises at this time. Cryocuff to left knee. TOILETING: Patient toileted, using commode, with Max A ASSESSMENT: Patient tolerated session with complaints of left knee pain throughout session. Patient was able to tolerate a progression in gait distance with FWW support and Min A, although continues to require constant cueing for Patient would benefit from continued participation in transfer and gait tanya anthony, as well as strengthening for improved mobility and improved activity tolerance. PLAN: Continue with PTs POC TREATMENT CODE/TIME: Session 1: 35 minutes; [id number], [id number] Session 2: 35 minutes; [id number] x2, [id number]
[2018-11-06] MEDS: Montelukast 10 MG TAB PO (21:49)
[2018-11-06] MEDS: DULoxetine 30 MG CAP 60 MG PO (21:49)
[2018-11-06 23:30] VITALS: BP 174/80; PULSE 103; RESP 20; TEMP 37.4; O2SAT 96
[2018-11-07 03:20] VITALS: BP 117/55; PULSE 92; RESP 16; TEMP 36.8; O2SAT 95
[2018-11-07 07:09] VITALS: BP 148/54; PULSE 92; RESP 19; TEMP 36.7; O2SAT 97
[2018-11-07] MEDS: Patient's Own Medication 1 EACH MISC PO (07:43)
[2018-11-07] MEDS: DULoxetine 30 MG CAP PO (07:44)
[2018-11-07] MEDS: Vitamin E 400 UNITS CAP PO (07:44)
[2018-11-07] MEDS: Magnesium Oxide 400 MG TAB PO (07:44)
[2018-11-07] MEDS: Celecoxib 200 MG CAP PO (07:44)
[2018-11-07] MEDS: Pantoprazole 40 MG TABCR PO (07:44)
[2018-11-07] MEDS: amLODIPine 10 MG TAB PO (07:44)
[2018-11-07] MEDS: Multivitamin w/Minerals TAB 1 TAB PO (07:44)
[2018-11-07] MEDS: LORazepam 0.5 MG TAB PO ×2 (07:44→11:56)
[2018-11-07] MEDS: Ascorbic Acid 500 MG TAB 1000 MG PO (07:45)
[2018-11-07] MEDS: Acetaminophen 325 MG TAB 650 MG PO (07:45)
[2018-11-07] MEDS: Levothyroxine 25 MCG TAB PO (07:45)
[2018-11-07] MEDS: Cholecalciferol (Vitamin D3) 400 UNIT TAB PO (07:45)
[2018-11-07] MEDS: hydroCHLOROthiazide 25 MG TAB PO (07:45)
[2018-11-07] MEDS: Primidone 50 MG TAB 150 MG PO (08:05)
[2018-11-07] MEDS: Lidocaine 5% Patch 1 PATCH TP (08:05)
[2018-11-07] MEDS: Sennosides/Docusate Sodium TAB 2 TAB PO (08:05)
--- NOTE | 2018-11-07 09:28 | PGE_ITS ---
Date of Service Date of service: 11/07/18 Time of Service: 09:29 Assessment and Plan Assessment and plan (1) Status post total knee replacement: Status: Acute Assessment and plan: Assessment: Her postop progress is slow. She definitely needs a shelter facility placement to her additional rehab until she can safely go home. Care management has put out feelers but so far, no responses from shelter facilities near the patient's home. Plan: Continue to mobilize with physical therapy until SNF bed is available. We will continue her on scheduled OxyContin for 4 more days to better manage her pain. Subjective Subjective Patient reports: no new complaints and still having pain Exam Narrative Exam Narrative: Continues afebrile vital signs are stable. Her ambulation continues to be limited because of complaints of generalized pain not only in her left knee. Cannot do a straight leg raise yet. She has good active dorsiflexion plantarflexion of her left ankle and good sensation and circulation to her left foot. Objective Objective Clinical Data: Vital Signs Temperature 36.7 C 11/07/18 07:09 Temperature Source Tympanic 11/07/18 07:09 Pulse 92 H 11/07/18 07:09 Pulse Rhythm Regular 11/06/18 19:49 Respiratory Rate 11/07/18 07:09 Respiratory Effort Non-Labored 11/07/18 03:57 Respiratory Depth Normal 11/07/18 03:57 Respiratory Pattern Normal 11/06/18 19:49 Blood Pressure 148/54 H 11/07/18 07:09 Pulse Oximetry 97 11/07/18 07:09 Respiratory End-tidal CO2 33 11/03/18 11:50 Oxygen Delivery Method Room Air 11/07/18 07:09 Oxygen Flow Rate 0 11/07/18 07:09 Pain Level 8 11/07/18 07:09 Comment 11/05/18 16:01 Intake & Output 11/06/18 11/06/18 11/07/18 11:59 23:59 11:59 Intake Total 250 / 370 120 / 370 Output Total 250 / 250 300 / 300 Balance 250 / 120 -130 / 120 -290 / -290 Intake: IV Oral 250 / 370 120 / 370 Output: Urine 250 / 250 300 / 300 Other: Urine Color Dark Dalia Yellow Coleman Urine Appearance Clear Urine Odor None Normal Voiding Methods Diaper Bedside Commode Bedside Commode Incontinent Laboratory Results WBC 12.51 k/cumm (4.4-10.8) H 11/05/18 06:40 RBC 2.75 m/cumm (4.00-5.20) L 11/05/18 06:40 Hgb 8.8 g/dL (12.0-15.5) L 11/05/18 06:40 Hct 26.7 % (36.0-46.0) L 11/05/18 06:40 MCV 97.1 fL (80-95) H 11/05/18 06:40 MCH 32.0 pg (27.0-33.0) 11/05/18 06:40 MCHC 33.0 g/dL (32.0-36.0) 11/05/18 06:40 RDW 12.8 % (11.7-14.6) 11/05/18 06:40 Plt Count 249 x1000/uL (130-400) 11/05/18 06:40 MPV 9.8 fL (8.0-11.0) 11/05/18 06:40
[2018-11-07] MEDS: oxyCODONE-CR 10 MG TABCR PO (10:06)
[2018-11-07] MEDS: Enoxaparin 40 MG/0.4 ML SYR SC (10:07)
[2018-11-07 11:20] VITALS: BP 134/77; PULSE 94; RESP 18; TEMP 37; O2SAT 97
--- NOTE | 2018-11-07 11:50 | PT.INNT ---
Date of service: 11/07/18 Time of Service: 11:50 PT Notes 11/07/18 Patient refused morning PT session, reporting that she has a headache and that she is having pain in her knee. Per nsg, she has been up to the commode several times this morning. Will attempt to resume PT services this afternoon.
--- NOTE | 2018-11-07 14:21 | W.PM.DS.N ---
Date of service: 11/07/18 Time of Service: 14:22 DS: Diagnosis Discharge Diagnosis (1) Status post total knee replacement: Status: Acute (2) Unilateral primary osteoarthritis, left knee: Status: Acute Discharge Plan Disposition Patient Disposition: SNF (LEVEL 1) [facility] Condition: Improving Discharge Details Reason For Visit: OA (L) KNEE Admit Date/Time: 11/03/18 05:56 Admit Provider: Diaz Drake Attending Provider: Diaz Drake Primary Care Provider: Megan Gonzalez Hospital Course Hospital Course: Patient was admitted to the medical/surgical floor following the procedure. She had significant postoperative pain which was difficult control. The pain was of the left knee but also throughout her whole body, which she reports to be somewhat chronic at baseline. She also had an issue with migraines which limit her mobilization for the first 1 to 2 days. Mobilization continued postoperatively with a more regimented pain control schedule. A knee immobilizer was also used to assist with knee extension during mobilization. The willams catheter was removed and voiding spontaneously. Vitals were stable. Physical therapy worked with the patient. She continued to have limitations in independent transfer, gait tolerance, weakness. She was not ready for discharge home but was deemed a candidate [facility]. No acute medical issues during the admission. Home Meds and New Rx's Prescriptions: New acetaminophen [Tylenol] 325 mg Tablet 650 mg PO Q6H PRN PRN (Reason: pain) Qty: 60 RF: 0 lorazepam 0.5 mg Tablet 0.5 mg PO QID PRN (Reason: anxiety) Qty: 20 RF: 0 fentanyl [Duragesic] 25 mcg/hr Patch 72 Hour 25 mcg transdermal Q72H Qty: 4 RF: 0 Phenaseptic 1.4 % Aerosol,[place]uck 0 ml mucous membrane QID PRN PRNQty: 30 RF: 0 oxycodone-acetaminophen 5-325 mg Tablet 1 tab PO Q6H PRN PRN (Reason: Pain) Qty: 20 RF: 0 pantoprazole 40 mg Tablet,Delayed Release (Dr/Ec) 40 mg PO DAILY Qty: 30 RF: 0 Therems-M 27-0.4 mg Tablet 1 tab PO DAILY Qty: 30 RF: 0 oxycodone [OxyContin] 10 mg Tablet,Oral Only,Ext.Rel.12 Hr 10 mg PO Q12H Qty: 6 RF: 0 aspirin 81 mg tablet,delayed release (DR/EC) 81 mg PO BID Qty: 60 RF: 0 Continued cetirizine-pseudoephedrine [Zyrtec-D] 5-120 mg Tablet Extended Release 12 Hr 1 tab PO DAILY RF: 0 amlodipine 10 mg Tablet 10 mg PO DAILY RF: 0 diphenhydramine HCl [Benadryl] 25 mg Capsule 25 mg PO DAILY RF: 0 celecoxib 200 mg Capsule 200 mg PO DAILY RF: 0 cyproheptadine 4 mg Tablet 4 mg PO BID PRNRF: 0 fluticasone propionate [Flonase Allergy Relief] 50 mcg/actuation [place],Suspension 1 spray INTRANASAL BID PRNRF: 0 CombiPatch 0.05-0.14 mg/24 hr Patch Semiweekly .QWEEKLY RF: 0 duloxetine 30 mg Capsule,Delayed Release(Dr/Ec) 30 mg PO DAILY RF: 0 duloxetine 60 mg Capsule,Delayed Release(Dr/Ec) 60 mg PO HS RF: 0 multivitamin Tablet 1 tab PO DAILY RF: 0 primidone 50 mg Tablet 150 mg PO BID RF: 0 riboflavin (vitamin B2) 100 mg Tablet 200 mg PO BID RF: 0 liothyronine 25 mcg Tablet 25 mcg PO DAILY RF: 0 sennosides-docusate sodium [Senokot-S] 8.6-50 mg Tablet 2 tab PO BID PRNRF: 0 ascorbic acid (vitamin C) 1,000 mg Tablet Extended Release 1,000 mg PO DAILY RF: 0 TobraDex 0.3-0.1 % Ointment 1 applic OPHTHALMIC (EYE) HS RF: 0 prochlorperazine maleate 10 mg Tablet 10 mg PO Q6H PRNRF: 0 ondansetron 8 mg Tablet,Disintegrating 8 mg PO Q8H PRNRF: 0 levothyroxine 25 mcg Tablet 25 mcg PO DAILY RF: 0 prochlorperazine [Compazine] 25 mg Suppository 25 mg DE . DIRECTED RF: 0 lidocaine 5 % Adhesive Patch,Medicated 1 patch TOPICAL DAILY RF: 0 montelukast 10 mg Tablet 10 mg PO QHS RF: 0 hydrochlorothiazide 25 mg Tablet 25 mg PO QAM RF: 0 loteprednol etabonate 0.5 % Drops,Suspension 1 drp OPHTHALMIC (EYE) BID PRNRF: 0 cholecalciferol (vitamin D3) [Vitamin D3] 400 unit Tablet 400 unit PO DAILY RF: 0 vitamin E 400 unit Capsule 400 unit PO DAILY RF: 0 magnesium oxide 400 mg magnesium Tablet 400 mg PO DAILY RF: 0 Medical Marijuana RF: 0 Changed baclofen 10 mg Tablet 10 mg PO BID PRN (Reason: Migraine Headache) Qty: 0 RF: 0 Discontinued amoxicillin 500 mg Capsule 500 mg PO PRN PRNRF: 0 azelastine 137 mcg (0.1 %) Aerosol,[place] 1 spray INTRANASAL PRN PRNRF: 0 diazepam 2 mg Tablet 2 mg PO DAILY PRN (Reason: Anxiety) RF: 0 dexamethasone 0.1 % Drops,Suspension 1 drp ophthalmic (eye) BID RF: 0 No Action epinephrine 0.3 mg/0.3 mL Syringe PRNRF: 0 Discharge Instructions Additional Instructions: Total Knee Discharge Instructions Activity: The most important activity is to walk. You should try to take short walks a few times a day. It is important that when resting you work on keeping the knee straight. Avoid putting a pillow behind the knee as this will encourage flexion. Work on range of motion exercises when in the chair and bed. Use the knee immobilizer to help with ambulation until you are able to straight leg raise. - You should wear the SASCHA hose on both legs for 2 weeks. Dressing: Keep the surgical dressing in place for at least one week. After the first week it may be removed and replace with light gauze and tape or nothing. It may get wet after 3 days but avoid soaking the dressing. If it gets wet, just lightly pat dry. - Aspirin 81mg twice a day for DVT prophylaxis - Oxycontin 10mg BID for 3 more days - Continue Fentanyl patch - Percocet for breakthrough pain Follow-up: 2 weeks Stand Alone Forms: Nursing Discharge Form Referrals: Diaz Drake MD [ [facility] STAFF PHYSICIAN] - Activity:: Activity as Tolerated Equipment/Supplies:: Walker Diet:: As Tolerated Discharge Orders Discharge Orders: Discharge Order (Routine); Ordered 11/07/18 Ordered By: Anjum Tellez DS: Summary Status at Discharge Functional status at discharge: uses cane/walker Overall status at discharge: patient is progressing back to baseline Mental Status: mental status grossly normal Speech and Movement: speech and movement normal Mood: congruent mood Affect: normal affect Exam Psych Mental Status: mental status grossly normal Speech and Movement: speech and movement normal Mood: congruent mood Affect: normal affect DS: Data Vitals/I&O Vitals and I&O: Vital Signs Temperature 36.7 C 11/07/18 07:09 Temperature Source Tympanic 11/07/18 07:09 Pulse 92 H 11/07/18 07:09 Pulse Rhythm Regular 11/07/18 07:35 Respiratory Rate 19 11/07/18 07:09 Respiratory Effort Non-Labored 11/07/18 07:35 Respiratory Depth Normal 11/07/18 07:35 Respiratory Pattern Normal 11/07/18 07:35 Blood Pressure 148/54 H 11/07/18 07:09 Pulse Oximetry 97 11/07/18 07:09 Respiratory End-tidal CO2 33 11/03/18 11:50 Oxygen Delivery Method Room Air 11/07/18 07:09 Oxygen Flow Rate 0 11/07/18 07:09 Pain Level 8 11/07/18 10:06 Comment 11/05/18 16:01 Intake & Output 11/06/18 11/07/18 11/07/18 23:59 11:59 23:59 Intake Total 120 / 370 10 / 250 240 / 250 Output Total 250 / 250 300 / 300 Balance -130 / 120 -290 / -50 240 / -50 Intake: IV 10 10 Oral 120 / 370 240 / 240 Output: Urine 250 / 250 300 / 300 Other: Urine Color Dark Dalia Yellow [place] Urine Appearance Clear Clear Urine Odor None Normal Voiding Methods Bedside Commode Bedside Commode Diaper Incontinent PFSH Social History Smoking/Tobacco Use Status: Never Drug use: Never
--- NOTE | 2018-11-07 16:03 | PDOC.CMDIS ---
- If Service Date Differs Date of service: 11/07/18 Time of Service: 16:03 LACE Index Scoring Tool - Questions: Length of Stay (in days): 4 - 6 Acuity (Admit via E.D.?): No Care Management Discharge Reason for Hospitalization: Osteoarthritis of left knee Discharge Plan: Eden will go to [facility] this afternoon She will transport via wheelchair van. Eden will follow up with Dr. richmond and her PCP when discharged. Patient/Family Education Needs: Discharge plan, limitations, follow up plan and Ask Me Three. Services Needed at Discharge: [facility]
--- NOTE | 2018-11-07 18:00 | PT.INDS ---
Date of service: 11/07/18 PT Notes Inpatient Physical Therapy Discharge Summary Dates: 11/07/2018 Dates of Service: 11/03/2018 through 11/07/2018 This is a clinical summary of care provided on the duration of dates listed above. No charge was made in the completion of this documentation. Referring Doctor: Diaz Drake MD PT Orders: PT CONSULT: Get OOB ambulating in room this afternoon. WBAT to L leg post-op L TKR.? Precautions: Fall. Standard. Patient Profile/Admitting Diagnosis: Patient is a 77 year old female s/p L TKR POD 0. She has a history of primary osteoarthritis, and widespread chronic pain. PMHX: Chronic otitis, Chronic pain, aortic stenosis,. basal cell ca,. Hx MRSA,. hyperlipidemia, hypothyroidism,. Iron deficiency anemia,. DARIEN,. PTSD. Suirgical history: Aortic valve replacement. C/S. appendectomy. cholecystectomy. fusion of cervical spine. sinus surgery Social History/Home Situation: Mrs. Muhammad reports she lives with her in a one-story home that has three steps to enter. Patient was independent with all aspects of ADLs without the need for an assistive ambulatory device not adaptive equipment. Equipment Owned/DME: FWW, 4WW, SC Subjective: NT. Please refer to ENVIRONMENTAL AUDITOR notes on 11/06/2018. Objective: General Observation: NT. Please refer to ENVIRONMENTAL AUDITOR notes on 11/06/2018. Mental Status:NT. Please refer to ENVIRONMENTAL AUDITOR notes on 11/06/2018. Pain: NT. Please refer to ENVIRONMENTAL AUDITOR notes on 11/06/2018. ROM: Right Lower Extremity: Hip flexion WFL. Hip abduction WFL. Ankle dorsiflexion WFL. Ankle plantarflexion WFL. Left Lower Extremity: Hip flexion WFL. Hip abduction WFL. Knee flexion 9-71 degrees. Knee extension -9 degrees. Strength: Right Lower Extremity: Hip flexors 3-/5. Hip abductors 4/5. Knee extensors 4-/5. Ankle dorsiflexors 3/5. Ankle plantarflexors 3/5. Left Lower Extremity: Hip flexors 3-/5. Hip abductors 4/5. Knee extensors 3-/5. Ankle dorsiflexors 3/5. Ankle plantarflexors 3/5. Bed Mobility/Transfers: Rolling SBA Supine to sit SBA Sit to supine SBA Sit to stand CGA Stand to sit CGA Bed to chair minimal assist Chair to bed minimal assist Gait: Patient ambulated 6' + 10? + 4' using a step-to gait pattern with a FWW and minimal assist and SBA of another for wheelchair follow with patient continuing to report significant pain on the L knee and hip.Moderate to maximal verbal cues were needed for extensive encouragement and safety. Balance: Static Sitting: Good Dynamic Sitting: Good Static Standing: Poor Dynamic Standing: Poor Assessment: Patient is a 77 year old female s/p L TKA POD 0. She has a history of hypertension, primary osteoarthritis, and chronic pain. She has the support of her , and seems motivated to return to prior level of function so her prognosis is good. Patient cotninues to present with clinical signs and symptoms consistent with current/admitting diagnoses that have resulted to mobility limitations, gait instability, generalized weakness, and impairment of motor control as demonstrated by the following impairment level findings: 1. Decreased strength to B LE major muscle groups 2. Impaired sitting/standing balance 3. Impaired activity tolerance 4. Limitation of joint range of motion in knee flexion and extension Impairments are contributing to the following functional limitations: 1. Dependent bed mobility skills 2. Increased dependence with transfers 3. Inability to safely ambulate without assistive device and physical assistance 4. Increase completion time for mobility ADL performance 5. Increased fall risk 6. Inability to negotiate steps alone safely Goals: Goals X1 week 1. Supine-Sit independent NOT MET 2. Sit-Supine independent NOT MET 3. Sit-Stand independent NOT MET 4. Stand-Sit independent NOT MET 5. Bed-Chair independent NOT MET 6. Chair-Bed independent NOT MET 7. Independent gait on level surface with use of least restrictive device for at least 100 feet without report of pain nor dyspnea NOT MET 8. Independent stair negotiation while holding onto bilateral rails for at least 5 steps without report of pain nor dyspnea NOT MET 9. Independent with home exercise program NOT MET 10. Good static and dynamic standing balance/tolerance NOT MET DISCHARGE RECOMMENDATIONS: Patient has requested being discharged to a [facility] facility as she fears her will not have the capacity to care for her. PT and SPT agree that SNF would be the best fit for her recovery. TREATMENT CODE/TIME: NC. Thank you very much for this referral. Ruthie Carroll PT, DPT, CLT [facility]
== END 2018-11-07 14:55 | disposition skilled nursing facility (03) | DRG 470 ==
LOC: PDS 05:58 → MS 10:47
PROVIDERS: Admitting Provider Orthopaedic Surgery; PCP Internal Medicine; Visit Provider Orthopaedic Surgery
PROC: 0SRD0J9 Replacement of Left Knee Joint with Synthetic Substitute, Cemented, Open Approach (ICD-10-PCS; CPT 27447; principal; 2018-11-03 07:30)
DX: M17.12 Unilateral primary osteoarthritis, left knee (principal); M21.062 Valgus deformity, not elsewhere classified, left knee; M25.562 Pain in left knee; Z96.652 Presence of left artificial knee joint; G89.18 Other acute postprocedural pain; R41.0 Disorientation, unspecified; R07.89 Other chest pain; G89.4 Chronic pain syndrome; G43.909 Migraine, unspecified, not intractable, without status migrainosus; I10 Essential (primary) hypertension; E03.9 Hypothyroidism, unspecified; F32.9 Major depressive disorder, single episode, unspecified; Z95.4 Presence of other heart-valve replacement; Z96.651 Presence of right artificial knee joint
CPT/HCPCS: 27447; 36415; 85027; 97110; 97162; 97530; J1650; NC; 73560; 93005; 93010; J0131; J0690; J1100; J1200; J1885; J2250; J2405; J3010; J3490; J8597; L1830

== ENCOUNTER → 2018-11-18 08:47 | Outpatient (BNVA) | payer MEDICARE, BC, SELFPAY | PROVIDERS: PCP Internal Medicine; Referring Provider Internal Medicine; Visit Provider Orthopaedic Surgery | DX: Z47.1 Aftercare following joint replacement surgery (principal); Z96.652 Presence of left artificial knee joint ==

== ENCOUNTER → 2018-12-03 10:06 | Outpatient (BNVA) | payer MEDICARE, BC, SELFPAY | PROVIDERS: PCP Internal Medicine; Referring Provider Internal Medicine; Visit Provider Orthopaedic Surgery | DX: Z47.1 Aftercare following joint replacement surgery (principal); Z96.652 Presence of left artificial knee joint ==

== ENCOUNTER → 2018-12-16 10:55 | Outpatient (BNVA) | payer MEDICARE, BC, SELFPAY | PROVIDERS: PCP Internal Medicine; Referring Provider Internal Medicine; Visit Provider Orthopaedic Surgery | DX: Z47.89 Encounter for other orthopedic aftercare (principal); M70.62 Trochanteric bursitis, left hip; Z96.652 Presence of left artificial knee joint | CPT/HCPCS: 99214 ==

== ENCOUNTER → 2019-01-06 11:03 | Outpatient (BNVA) | payer MEDICARE, BC, SELFPAY | PROVIDERS: PCP Internal Medicine; Referring Provider Internal Medicine; Visit Provider Orthopaedic Surgery | DX: M70.62 Trochanteric bursitis, left hip (principal) | CPT/HCPCS: 20610; J1040 ==

== ENCOUNTER 2019-01-27 11:22 | Outpatient (CLI) | payer MEDICARE, BC, SELFPAY ==
--- NOTE | 2019-01-27 10:55 | DI.RAD_ITS ---
EXAM: XR HIP LT COMPLETE AP PELVIS INDICATION: pain. COMPARISON: No exams were available for comparison TECHNIQUE: 2D digital imaging was performed. FINDINGS: There are again seen 3 partially threaded screws transfixing old subcapital fracture of the left femo ral neck. There has been no change in alignment of the fracture or orthopedic hardware. No new frac tures or dislocations are seen. Stable degenerative changes are seen in the right and left hips. So ft tissues are unremarkable.
== END 2019-01-27 11:42 ==
PROVIDERS: PCP Internal Medicine; Referring Provider Internal Medicine; Visit Provider Orthopaedic Surgery
DX: M25.552 Pain in left hip (principal); M70.62 Trochanteric bursitis, left hip; Z87.81 Personal history of (healed) traumatic fracture; M16.0 Bilateral primary osteoarthritis of hip; Z47.1 Aftercare following joint replacement surgery; Z96.652 Presence of left artificial knee joint
CPT/HCPCS: 73502

== ENCOUNTER 2019-09-23 13:09 | Outpatient (CLI) | payer MEDICARE, BC, SELFPAY ==
--- NOTE | 2019-09-23 11:30 | DI.RAD_ITS ---
EXAM: XR HIP LT COMPLETE AP PELVIS CLINICAL HISTORY: pain TECHNIQUE: 2D digital imaging was performed. COMPARISON: CR XR HIP LT COMPLETE AP PELVIS from 01/27/2019 FINDINGS: Screws are again noted in the left proximal femur. No abnormal bony lucencies are seen. The left hi p joint space is well maintained. There is acetabular spurring. There is moderate narrowing of the right hip joint space and moderate periarticular spurring. IMPRESSION: Stable postsurgical and degenerative changes.
== END 2019-09-23 13:29 ==
PROVIDERS: PCP Internal Medicine; Referring Provider Internal Medicine; Visit Provider Orthopaedic Surgery
DX: M70.62 Trochanteric bursitis, left hip (principal); T84.84XA Pain due to internal orthopedic prosthetic devices, implants and grafts, initial encounter; M16.12 Unilateral primary osteoarthritis, left hip
CPT/HCPCS: 99213; 73502

== ENCOUNTER 2019-10-09 08:44 | Outpatient (CLI) | payer MEDICARE, BC, SELFPAY ==
[2019-10-10 17:29] LABS: COVID-19 RT-PCR Result NEGATIVE (Negative)
== END 2019-10-09 09:04 ==
PROVIDERS: PCP Internal Medicine; Visit Provider Orthopaedic Surgery
DX: Z01.818 Encounter for other preprocedural examination (principal); T84.84XA Pain due to internal orthopedic prosthetic devices, implants and grafts, initial encounter; M25.552 Pain in left hip
CPT/HCPCS: U0003

== ENCOUNTER 2019-10-12 10:02 | Day surgery (SDC) | payer MEDICARE, BC, SELFPAY ==
[2019-10-12] VITALS (8 sets, daily range): BP systolic 135–175; BP diastolic 57–72; PULSE 65–92; RESP 12–20; TEMP 36.1–36.6; O2SAT 96–98
[2019-10-12] MEDS: Lactated Ringers 1,000 ML 80 ML IV (10:50)
--- NOTE | 2019-10-12 12:35 | DI.RAD_ITS ---
EXAM: XR HIP LT IN OR CLINICAL HISTORY: PAINFUL HARDWARE LEFT HIP. TECHNIQUE: 2D and realtime digital imaging was performed. COMPARISON: CR XR HIP LT COMPLETE AP PELVIS from 09/23/2019 FINDINGS: Fluoroscopy was provided in the OR during hardware removal. Please see procedure note for details. Fluoro time: 1.8 seconds RADIATION DOSE DELIVERED:
--- NOTE | 2019-10-12 12:57 | W.PM.DSUDISC ---
Discharge Plan Disposition Patient Disposition: HOME Condition: Good Discharge Details Reason For Visit: REMOVE HARDWARE l HIP Attending Provider: Diaz Drake Primary Care Provider: Megan Gonzalez Home Meds and New Rx's Prescriptions: New hydrocodone-acetaminophen 5-325 mg tablet 1 tab PO Q4H PRN (Reason: pain) Qty: 20 RF: 0 No Action prednisone 5 mg tablet 5 mg PO DAILY Qty: 30 RF: 0 oxybutynin chloride 5 mg tablet 5 mg PO TID RF: 0 diazepam 2 mg tablet 2 mg PO DAILY PRNRF: 0 citalopram 10 mg tablet 10 mg PO DAILY RF: 0 cyclobenzaprine 10 mg tablet 10 mg PO TID PRNRF: 0 primidone 50 mg tablet 50 mg PO BID RF: 0 cetirizine-pseudoephedrine [Zyrtec-D] 5-120 mg Tablet Extended Release 12 Hr 1 tab PO DAILY RF: 0 amlodipine 10 mg Tablet 10 mg PO DAILY RF: 0 celecoxib 200 mg Capsule 200 mg PO DAILY RF: 0 fluticasone propionate [Flonase Allergy Relief] 50 mcg/actuation [place]in,Suspension 1 spray INTRANASAL BID PRNRF: 0 CombiPatch 0.05-0.14 mg/24 hr Patch Semiweekly .QWEEKLY RF: 0 duloxetine 30 mg Capsule,Delayed Release(Dr/Ec) 30 mg PO DAILY RF: 0 duloxetine 60 mg Capsule,Delayed Release(Dr/Ec) 60 mg PO HS RF: 0 epinephrine 0.3 mg/0.3 mL Syringe 0.3 ml IM PRN PRNRF: 0 multivitamin Tablet 1 tab PO DAILY RF: 0 riboflavin (vitamin B2) 100 mg Tablet 200 mg PO BID RF: 0 sennosides-docusate sodium [Senokot-S] 8.6-50 mg Tablet 2 tab PO BID PRNRF: 0 ascorbic acid (vitamin C) 1,000 mg Tablet Extended Release 1,000 mg PO DAILY RF: 0 TobraDex 0.3-0.1 % Ointment 1 applic OPHTHALMIC (EYE) HS RF: 0 ondansetron 8 mg Tablet,Disintegrating 8 mg PO Q8H PRNRF: 0 levothyroxine 25 mcg Tablet 25 mcg PO DAILY RF: 0 lidocaine 5 % Adhesive Patch,Medicated 1 patch TOPICAL DAILY RF: 0 montelukast 10 mg Tablet 10 mg PO QHS RF: 0 hydrochlorothiazide 25 mg Tablet 25 mg PO QAM RF: 0 loteprednol etabonate 0.5 % Drops,Suspension 1 drp OPHTHALMIC (EYE) BID PRNRF: 0 cholecalciferol (vitamin D3) [Vitamin D3] 400 unit Tablet 400 unit PO DAILY RF: 0 vitamin E 400 unit Capsule 400 unit PO DAILY RF: 0 magnesium oxide 400 mg magnesium Tablet 400 mg PO DAILY RF: 0 Medical Marijuana 0.5 RF: 0 acetaminophen [Tylenol] 325 mg Tablet 650 mg PO Q6H PRN PRN (Reason: pain) Qty: 60 RF: 0 Phenaseptic 1.4 % Aerosol,Pepin 0 ml mucous membrane QID PRN PRNQty: 30 RF: 0 Therems-M 27-0.4 mg Tablet 1 tab PO DAILY Qty: 30 RF: 0 polyethylene glycol 3350 [Miralax] 17 gram/dose Powder 17 g PO DAILY RF: 0 Discharge Instructions Additional Instructions: Use walker to ambulate. Only put as much weight on L leg as your discomfort allows. Apply ice to surgical site every 4 hours for 1 hour each time. May shower and get dressing wet in 72 hours. Don't remove dressing--let it gradually come off by itself. You can lay on L side if pain allows. Follow up with on Sat10/21/19. Referrals: Diaz Drake MD [ [facility] STAFF PHYSICIAN] - (f/u on Sat10/21/19) Equipment/Supplies: Partial Weight Bearing Crutches Activity:: Activity as Tolerated Remove Dressings/Wound Care:: Do Not Remove Shower/Bathe:: 72 hours Diet:: As Tolerated Discharge Orders Discharge Orders: Discharge Order (Routine); Ordered 10/12/19 Ordered By: Diaz Drake DS: Diagnosis Discharge Diagnosis (1) Painful orthopaedic hardware: Status: Acute
[2019-10-12] MEDS: fentaNYL 100 MCG/2 ML VIAL IVP (13:35)
--- NOTE | 2019-10-12 15:11 | ROE_ITS ---
Date of service: 10/12/19 Time of Service: 11:27 Operative Note Operative Note DATE OF PROCEDURE: 10/12/19 PRE-OP DIAGNOSIS: Painful hardware (screws) left hip. 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 Since the surgery she has complained off-and-on of the lateral left hip pain. Over the last few years the hip pain is gotten worse. Initially she was responsive to conservative treatment with anti-inflammatories and steroid injections. She is now resistant to the injections and gets no relief. Her discomfort is directly over the screw heads. I think they are irritating the iliotibial band causing her pain. Since the fracture is healed long ago I thought that removal of the screws will be indicated to alleviate her pain. Risk complication procedure explained patient in detail preop. Procedure Description: Patient was taken the operating room on 10/12/2019 placed supine operative table. General anesthetic was administered with LMA. She was then turned to the left lateral position on the operating table position was maintained pneumatic beanbag. The left lateral hip was sterilely prepped and blocked draped. Incision was made incorporating the small scar from her previous percutaneous pin insertions. This scar was extended proximally and distally in line with the femoral shaft so that the incision was about 5 inches in length. Incision was carried down through the subcu to the iliotibial band. Subcutaneous veins were cauterized. The tibial band was longitudinally incised. Sharp dissection was then carried down to the anterior screw. The screw head was exposed with a rongeur. There was bony overgrowth to the screw head and the screw initially would not move. I then remove bone from around the screw head with a an osteotome and was able to back the screw out. Utilizing the C-arm image intensifier was able to locate the remaining 2 screws. They are exposed in a similar fashion using a rongeur to remove soft tissue and then using a osteotome and mallet to remove bone from around the screw head. Screws were backed out without incident. I then irrigated the wound with Betadine and saline solution. I packed the screw holes with demineralized bone matrix. Vastus lateralis fascia was approximated over the screw holes with a running 2-0 Vicryl suture. With sharp dissection I freed up the IT band from any adhesions over the trochanter. The iliotibial band was then approximated with interrupted [id number] suture of #1 Vicryl suture. Subcu was approximated interrupted 2-0 Vicryl sutures and the skin edges were approximated with skin epifanio. The wound margins have been infiltrated with 0.5% Marcaine with epinephrine solution from the skin down to the periosteum of the lateral femur. Wounds dressed with Xeroform gauze followed by Mepilex dressing over the gauze. Patient was turned supine operative table and her anesthesia was reversed all complications. Blood loss was minimal her anesthesia was reversed complication she was discharged to the recovery room good condition. Patient was later discharged home from day surgery unit and fully recovered from her general anesthesia. She is given instructions to use a walker to ambulate. She should put only as much weight on the left leg as pain allows. She may shower and get a Mepilex dressing wet in 72 hours. She should leave the dressing alone and let it fall off by itself. She should apply ice to the incision 4 times a day for an hour each time. She should take Tylenol for mild pain. I gave a prescription for breakthrough pain of hydrocodone with APAP 06/27/2024 1 tab every 4 hours as needed. She should follow-up with Dr. Drake in 2 weeks.
--- NOTE | 2019-10-12 17:14 | NUR.NOTE ---
1100: Pt. using conflicting year when this nurse verifies pt. identity. Upon arrival, nurse verified pt. birthdate with armband and chart, pt. confirmed birthdate: 1940. After starting pt's IV, nurse asked pt. to give nurse her name and date of so arm band could be applied. Pt. stated her birthdate was 08/17/1941. Nurse asked pt. to repeat her birthdate and pt. stated 08/17/1941. Nursing mentioned to pt. that it did not match what was confirmed earlier and what was on her armband for today's visit. Pt. stated, i had an anxiety attack last week when the office girl called me and discussed this with me, pt. went on to say her birthdate was changed when she was in school and has been that way since. Garrison Marie, STARR, in room. WARPER CREELER went to check [facility] records and called this nurse to report her birthdate was 08/17/1941 on their records. This nurse brought the issue to [employer] national facilities manager's attention. Pricing Lead spoke to medical records, and pt's birthdate was reported to be one way on [employer] and another on goverment insurance, and that other visits under same medical number had conflicting birthdates. This nurse was informed procedure would be performed and conflict figured out. Circulating nurse applied wristband to pt. Pt. went for procedure. 1405: Pt. returned from procedure from PACU. This nurse brought medication administration policy and her concern that medication administration could not be performed using the five rights if pt. did not confirm the date of on her armband to [employer]SU charge nurse, who brought it to [employer] national facilities manager's attention. This nurse instructed to only administer medications if pt. confirmed birthdate on armband and to explain to pt. that no medications would be administered if she did not confirm the birthdate on her armband. Nursing Note:
== END 2019-10-12 15:12 | disposition home or self-care (01) ==
PROVIDERS: PCP Internal Medicine; Visit Provider Orthopaedic Surgery
PROC: (CPT 20680; principal; 2019-10-12 11:45)
DX: T84.84XA Pain due to internal orthopedic prosthetic devices, implants and grafts, initial encounter (principal); M25.551 Pain in right hip; S72.002S Fracture of unspecified part of neck of left femur, sequela; X58.XXXS Exposure to other specified factors, sequela
CPT/HCPCS: 20680; 73501; J0131; J1100; J1885; J2001; J2405; J3010

== ENCOUNTER 2019-10-21 10:57 | Outpatient (CLI) | payer MEDICARE, BC, SELFPAY ==
--- NOTE | 2019-10-21 09:45 | DI.RAD_ITS ---
EXAM: XR HIP LT COMPLETE AP PELVIS CLINICAL HISTORY: f/u hardware removal TECHNIQUE: COMPARISON: CR XR HIP LT COMPLETE AP PELVIS from 09/23/2019 FINDINGS: Two views were obtained. Previously described lag screws of the proximal left femur have been remove d, no change in alignment of the healed proximal femoral fracture. Moderate degenerative changes of both hips again noted. IMPRESSION: RADIATION DOSE DELIVERED: Total DLP
--- NOTE | 2019-10-21 10:00 | DI.RAD_ITS ---
EXAM: XR KNEE LT 2V AP,LAT CLINICAL HISTORY: annual f/u TECHNIQUE: COMPARISON: CR XR knee LT 2V AP,lat from 11/03/2018 FINDINGS: Two views were obtained. There is a total knee joint replacement in position. The components appear well seated. No other significant bony abnormality seen. IMPRESSION: RADIATION DOSE DELIVERED: Total DLP
== END 2019-10-21 11:17 ==
PROVIDERS: PCP Internal Medicine; Referring Provider Internal Medicine; Visit Provider Orthopaedic Surgery
DX: Z96.652 Presence of left artificial knee joint (principal); Z87.81 Personal history of (healed) traumatic fracture; M16.0 Bilateral primary osteoarthritis of hip; T84.84XA Pain due to internal orthopedic prosthetic devices, implants and grafts, initial encounter; M25.551 Pain in right hip; S72.002S Fracture of unspecified part of neck of left femur, sequela
CPT/HCPCS: 73502; 73560

== ENCOUNTER 2019-12-02 11:33 | Outpatient (CLI) | payer MEDICARE, BC, SELFPAY ==
--- NOTE | 2019-12-02 10:55 | DI.RAD_ITS ---
EXAM: XR HIP LT COMPLETE AP PELVIS CLINICAL HISTORY: pain TECHNIQUE: COMPARISON: CR XR HIP LT COMPLETE AP PELVIS from 10/21/2019 FINDINGS: Two views were obtained. There is evidence of prior fixation screws of the left femoral head and as noted on previous examinations. There is mild narrowing of the cartilaginous joint spaces of both hi ps. There is moderate marginal osteophyte formation the acetabula and femoral heads bilaterally. No evidence of fracture or dislocation. IMPRESSION: Moderate degenerative changes both hips. RADIATION DOSE DELIVERED: Total DLP
== END 2019-12-02 11:53 ==
PROVIDERS: PCP Internal Medicine; Referring Provider Internal Medicine; Visit Provider Orthopaedic Surgery
DX: M16.0 Bilateral primary osteoarthritis of hip; Z47.89 Encounter for other orthopedic aftercare; T84.84XD Pain due to internal orthopedic prosthetic devices, implants and grafts, subsequent encounter; Z96.651 Presence of right artificial knee joint; M70.62 Trochanteric bursitis, left hip
CPT/HCPCS: 73502